=== PATIENT | female | born 1960 | race Two or more races ===

== ENCOUNTER 2025-01-25 08:16 | Emergency (ER) | payer OTHER ==
[~2025-01-25] VITALS: Ht 157.5 cm; Wt 89.4 kg
[2025-01-25] MEDS ORDERED: KETOROLAC TROMETHAMINE 30 MG VIAL IM ONE (09:15)
[2025-01-25] MEDS ORDERED: KETOROLAC TROMETHAMINE 30 MG VIAL ONE (09:16)
== END 2025-01-25 11:04 | disposition home or self-care (01) ==
LOC: ER 08:16
DX: S42.392A Other fracture of shaft of left humerus, initial encounter for closed fracture (principal)